=== PATIENT | female | born 1985 | race Two or more races ===

== ENCOUNTER 2018-09-29 18:15 | Inpatient (IN) | payer SELFPAY ==
[~2018-09-29 18:15] MED LIST: ISOVUE-370 76%-LOCM 1 ML ONE
[2018-09-29] MEDS ORDERED: Multivitamins, Adult 10 ML, Thiamine HCl 100 MG, Folic Acid 1 MG in Dextrose 5 %-0.45 %... IV SCH (19:00)
[2018-09-29 19:23] LABS: BHCG - Serum Negative (NEGATIVE); Pregs Control Background? CLEAR/WHITE (CLR/WHITE); Pregs Control Bar Appear? YES (CONTROL BAR)
[2018-09-29 19:29] LABS: Acetaminophen Less than 6.0 mcg/mL (10.0-30.0); Alcohol 201 mg/dL (Less than 10); Salicylate Less than 8.0 mg/dL (15.0-30.0)
[2018-09-29 19:31] LABS: ALT (SGPT) 10 U/L (8-55); AST (SGOT) 50 U/L (5-34); Albumin 2.9 g/dL (3.5-5.0); Alkaline Phosphatase 77 U/L (40-150); Anion Gap 17 mmol/L (10-20); BUN (Urea Nitrogen) 9 mg/dL (7.0-18.7); Bilirubin, Total 2.5 mg/dL (0.2-1.2); CK (CPK) 111 U/L (29-168); Calc. Creatinine Clearance 0 mL/min (70-130); Calcium 7.2 mg/dL (7.8-10.44); Carbon Dioxide 20 mmol/L (22-29); Chloride 106 mmol/L (98-107); Estimated GFR-MDRD Greater than 90; Globulin 4.9 g/dL (2.4-3.5); Glucose 143 mg/dL (70-105); Lipase 70 U/L (8-78); Potassium 3.9 mmol/L (3.5-5.1); Protein, Total 7.8 g/dL (6.0-8.3); Sodium 139 mmol/L (136-145)
[2018-09-29 19:42] LABS: CKMB 0.7 ng/mL (0-6.6); Troponin I Less than 0.010 ng/mL (< 0.028)
[2018-09-29 19:46] LABS: #Basophils 0.1 thou/uL (0.0-0.2); #Lymphocytes 1.4 thou/uL (1.20-3.40); #Monocytes 0.8 thou/uL (0.11-0.59); #Neutrophils 5.2 thou/uL (1.40-6.50); %Eosinophils 0.1 % (0.0-10.0); %Monocytes 10.3 % (0.0-10.0); %Neutrophils 69.7 % (42.0-75.0); Hemoglobin 8.4 g/dL (12.0-16.0); Mean Corpuscular HGB CONC 33.9 g/dL (32.0-36.0); Mean Corpuscular Hemoglobin 34.9 pg (27.0-31.0); Mean Platelet Volume 11.3 fL (7.4-10.4); Platelet Count 26 thou/uL (130-400); RBC Distribution Width 12.1 % (11.5-14.5); Red Blood Cell (RBC) Count 2.42 mill/uL (4.20-5.40); Reflex for Review?? YES; White Blood Cell (WBC) Count 7.5 thou/uL (4.8-10.8)
[2018-09-29 19:47] LABS: Anisocytosis SLIGHT = 6-15 cells (100X) (0-5/hpf); Hypochromia MODERATE=16-30 cells (100X) (0-5/hpf); MDiff Complete? YES; Macrocytosis SLIGHT = 6-15 cells (100X) (0-5/hpf); PLT Morphology Comment Appears Decreased; Target Cells MODERATE= 6-15 cells (100X) (0-1/hpf)
[2018-09-29 20:26] LABS: Bilirubin Negative (Negative); Blood, Urine Negative (Negative); Clarity CLEAR (Clear); Glucose, Urine (Dipstick) 500 mg/dL (Negative); Leukocyte Negative (Negative); Nitrite Negative (Negative); Protein, Urine (Dipstick) Negative (Neg-Trace); Specific Gravity, Urine 1.017 (1.002-1.036)
[2018-09-29 20:38] LABS: Amphetamine Not Detected (NotDetected); Barbiturates Screen Not Detected (NotDetected); Benzodiazepine Screen Detected (NotDetected); Cocaine Metabolite Screen Not Detected (NotDetected); Medtox Control Line Valid? VALID (VALID); Medtox Reader # READER 1; Methadone Not Detected (NotDetected); Methamphetamine Not Detected (NotDetected); Opiate Screen Not Detected (NotDetected); Oxycodone Screen Not Detected (NotDetected); Phencyclidine (PCP) Not Detected (NotDetected); THC/Cannabinoid Screen Not Detected (NotDetected); Tricyclic Screen Not Detected (NotDetected)
[2018-09-29] MEDS ORDERED: Cefepime 2 GM in Sodium Chloride 0.9% 100 ML IVPB SCH (22:15)
[2018-09-29] MEDS ORDERED: Lorazepam 2 MG/ML VIAL SLOW IVP PRN (23:03)
[2018-09-29] MEDS ORDERED: Sodium Chloride 0.9% 1,000 ML IV SCH (23:05)
[2018-09-29 23:07] LABS: Lactic Acid 1.8 mmol/L (0.5-2.2)
--- NOTE | 2018-09-30 | CT ---
CT ANGIOGRAM OF THE CHEST 09/29/18 COMPARISON: None. HISTORY: Right upper lobe pneumonia noted on radiograph performed 09/29/18. Evaluate for associated pulmonary embolism. TECHNIQUE: Serial axial CT imaging at 2.5 mm intervals from the thoracic inlet through the upper abdomen with IV contrast using a CT angiogram protocol. Coronal and oblique sagittal 3D reformatted imaging obtained . FINDINGS: No axillary, mediastinal, or hilar lymphadenopathy noted. The gallbladder appears quite distended and contains high density material suggesting stones and/or milk of calcium, only partially imaged on th is examination. Followup right upper quadrant ultrasound suggested as clinically warranted. Probable small caliber varices noted in the splenic hilum. No significant pleural, pericardial or med iastinal fluid. No evidence for pulmonary embolism. There is mild ground glass opacity/air space disease within the posterior inferior left lower lobe. T here is extensive air space disease/ground glass opacity involving the right lower lobe, particularly inferiorly/posteriorly. There is mild patchy ground glass opacity within the right middle lobe. Ther e is a dense focal area of consolidation involving the posterior inferior aspect of the right upper l obe, measuring at least 8 cm in transverse dimension. No associated cavitation. No endobronchial lesi on. Review of osseous structures demonstrates no acute findings. IMPRESSION: 1. No evidence of pulmonary embolism. 2. Findings suggesting nonspecific multifocal infectious pneumonitis, most prominent in the righ t upper lobe. Followup imaging following treatment to document resolution advised. 3. Abnormal appearance of the gallbladder as described above, only partially imaged on this exam . The gallbladder appears markedly distended and contains high density material. POS: [facility]
--- NOTE | 2018-09-30 07:47 | ULT ---
GALLBLADDER ULTRASOUND: HISTORY: A 33-year-old female with a history of gallstones. FINDINGS: Coarse increased echogenicity within the liver, evidence for some fatty change. The gallbladder is d istended with thickened gallbladder wall with some edematous changes and some pericholecystic fluid a s well as a positive Tobias's sign. Evidence for acute cholecystitis. The visualized pancreas and r ight kidney are unremarkable. Common bile duct is not dilated. IMPRESSION: Evidence for acute cholecystitis with a distended gallbladder with gallbladder wall thickening and ed ematous changes and pericholecystic fluid as well as extensive sludge as well as a positive Tobias's sign. CODE T POS: [facility]
[2018-09-30] MEDS ORDERED: Ondansetron ODT 4 MG TAB PO PRN (07:51)
[2018-09-30] MEDS ORDERED: Bisacodyl 10 MG SUPP PR PRN (07:51)
[2018-09-30] MEDS ORDERED: Ondansetron PF 4 MG/2 ML Vial IVP PRN (07:51)
[2018-09-30] MEDS ORDERED: Acetaminophen 325 MG TAB PO PRN (07:51)
[2018-09-30] MEDS ORDERED: Loperamide HCl 2 MG CAP PO PRN (07:51)
[2018-09-30] MEDS ORDERED: Senokot S 8.6-50 MG TAB PO PRN (07:51)
[2018-09-30] MEDS ORDERED: Zolpidem Tartrate 5 MG TAB PO PRN (07:51)
[2018-09-30] MEDS ORDERED: Bisacodyl 5 MG TAB PO PRN (07:51)
[2018-09-30] MEDS ORDERED: VANCOMYCIN IVPB PRN (07:53)
[2018-09-30] MEDS ORDERED: Lorazepam 2 MG/ML VIAL SLOW IVP PRN (07:54)
[2018-09-30] MEDS ORDERED: Multivit, Adult Inj 10 ML VIAL IV SCH (08:00)
[2018-09-30] MEDS: Lorazepam 2 MG/ML VIAL SLOW IVP PRN ×2 (08:15→17:17)
[2018-09-30 09:33] LABS: Hemoglobin 8.1 g/dL (12.0-16.0); Mean Corpuscular HGB CONC 33.9 g/dL (32.0-36.0); Mean Corpuscular Hemoglobin 34.5 pg (27.0-31.0); Mean Platelet Volume 12.3 fL (7.4-10.4); Platelet Count 21 thou/uL (130-400); RBC Distribution Width 12.2 % (11.5-14.5); Red Blood Cell (RBC) Count 2.34 mill/uL (4.20-5.40); White Blood Cell (WBC) Count 5.6 thou/uL (4.8-10.8)
[2018-09-30] MEDS ORDERED: Diazepam 5 MG TAB PO PRN (09:41)
[2018-09-30] MEDS ORDERED: Diazepam 5 MG TAB PO SCH (09:45)
[2018-09-30 09:51] LABS: Phosphorus 2.1 mg/dL (2.3-4.7)
[2018-09-30 09:52] LABS: ALT (SGPT) 9 U/L (8-55); AST (SGOT) 41 U/L (5-34); Albumin 2.7 g/dL (3.5-5.0); Alkaline Phosphatase 68 U/L (40-150); Anion Gap 11 mmol/L (10-20); BUN (Urea Nitrogen) 4 mg/dL (7.0-18.7); Bilirubin, Total 2.9 mg/dL (0.2-1.2); Calc. Creatinine Clearance 130 mL/min (70-130); Calcium 6.8 mg/dL (7.8-10.44); Carbon Dioxide 25 mmol/L (22-29); Chloride 102 mmol/L (98-107); Estimated GFR-MDRD Greater than 90; Globulin 4.6 g/dL (2.4-3.5); Glucose 97 mg/dL (70-105); Protein, Total 7.3 g/dL (6.0-8.3); Sodium 135 mmol/L (136-145)
[2018-09-30 09:58] LABS: Magnesium 0.7 mg/dL (1.6-2.6)
[2018-09-30] MEDS ORDERED: Vancomycin HCl 1 GM in Premix Bag 1 BAG IVPB SCH (10:00)
[2018-09-30] MEDS ORDERED: Thiamine HCl 200 MG/2 ML VIAL IM SCH (10:00)
[2018-09-30 10:02] LABS: #Basophils 0.1 thou/uL (0.0-0.2); #Monocytes 0.7 thou/uL (0.11-0.59); #Neutrophils 2.8 thou/uL (1.40-6.50); %Basophils 1.2 % (0.0-1.0); %Eosinophils 0.5 % (0.0-10.0); %Lymphocytes 36.5 % (21.0-51.0); %Monocytes 11.6 % (0.0-10.0); %Neutrophils 50.2 % (42.0-75.0); Hypochromia SLIGHT = 6-15 cells (100X) (0-5/hpf); MDiff Complete? YES; PLT Morphology Comment Appears Decreased; Polychromasia SLIGHT = 2-3 cells (100X) (0-2/hpf); Target Cells SLIGHT = 2-5 cells (100X) (0-1/hpf)
[2018-09-30] MEDS ORDERED: Magnesium Sulfate 4 GM in Sodium Chloride 0.9% 250 ML 250 ML IVPB SCH ×2 (10:15→12:45)
[2018-09-30] MEDS: Dextrose 5 % And 0.9 % NaCl 1,000 ML IV SCH ×2 (11:00→15:44)
[2018-09-30] MEDS ORDERED: Magnesium 2 GM/50 ML 2 GM in Premix Bag 1 BAG IVPB SCH (11:00)
[2018-09-30] MEDS ORDERED: Multivitamins, Adult 10 ML in Sodium Chloride 0.9% 500 ML IV SCH (12:00)
[2018-09-30] MEDS ORDERED: Saccharomyces boulardii 250 MG CAP PO SCH (12:00)
[2018-09-30] MEDS ORDERED: Potassium Phosphate 30 MMOL in Sodium Chloride 0.9% 500 ML IVPB SCH (12:00)
[2018-09-30] MEDS: Famotidine/PF 20 mg/2ml Vial SLOW IVP SCH ×2 (12:10→21:32)
[2018-09-30] MEDS: Cefepime 2 GM in Sodium Chloride 0.9% 100 ML IVPB SCH (12:16)
[2018-09-30] MEDS ORDERED: Vancomycin HCl 1.75 GM in Sodium Chloride 0.9% 500 ML IVPB SCH (14:00)
--- NOTE | 2018-09-30 14:46 | CON ---
DATE OF CONSULTATION: 09/30/2018 HISTORY: Digna Maier is a 33-year-old female with 10-day history of heavy alcohol abuse, who presented last night after she apparently got dizzy and fell down. She normally seeks care where ever she is. Last time 2 months ago, she was at [facility]. Additionally, she was coughing some blood and apparently denies any chest pain, chills, or sweats. A CTA of the chest was done, which shows a right-sided pneumonia. She says she is feeling better. She has been drinking up to a pint of vodka and 4 beers for a period of time over the last 4 to 5 days. She says she has quit drinking. She is nonsmoker. She lost 20 pounds. Appetite is poor. PAST MEDICAL HISTORY: Alcohol abuse. No history of TB, pneumonia, or history of epilepsy. PREVIOUS SURGERIES: None to speak of. SOCIAL HISTORY: Presently unemployed. She apparently also has history of previous drug abuse, she says cocaine, heroin, marijuana, and meth. She lives with the boyfriend and 3 kids. ALLERGIES: NONE. REVIEW OF SYSTEMS: Unremarkable. PHYSICAL EXAMINATION: GENERAL: She is tremulous. VITAL SIGNS: Saturations 96% on room air, respirations 16, pulse 106, temperature 99, and blood pressure 119/75. CHEST: Decreased breath sounds. No wheezing. CARDIAC: Normal S1 and S2. No gallops. LABORATORY DATA: Platelet count is 26,000, H and H 8 and 24, white count 7000. Lytes are normal. Total bilirubin is 2.5. AST is 50. She had cocaine on drug screen. Alcohol level is 201. IMPRESSION: 1. Alcoholic liver disease. 2. Thrombocytopenia. 3. Pneumonia. 4. Drug abuse. 5. Severe thrombocytopenia. She had adequate antibiotics. Pulmonary cui, she needs long-term counseling. Continue Maxipime and Levaquin. We will follow. consult note_ 70 minutes, 50% in direct patient care. Job ID: [id number] MTDD
--- NOTE | 2018-09-30 15:11 | HP ---
PRIMARY CARE PHYSICIAN: [facility] REASON FOR ADMISSION: Multifocal pneumonia, acute cholecystitis, abnormal electrolytes, and alcohol withdrawal syndrome. HISTORY OF PRESENT ILLNESS: A 33-year-old female who has no significant medical history other than chronic alcoholism, who presented last night in the emergency room with the complaint of increasing cough, shortness of breath, cough with sputum, containing trace amount of blood. She was having chest discomfort with coughing. She was also experiencing right upper quadrant pain. The patient has heavy alcohol abuse history. She drinks one pint of vodka along with 4 beers everyday basis. In emergency room, routine blood test showed severe thrombocytopenia with platelet count 26 and macrocytic anemia. She also had significantly abnormal LFT and abnormal electrolytes. In the emergency room, the patient was complaining of abdominal pain and that is why ultrasound right upper quadrant was obtained, which was suggestive of acute cholecystitis and gallbladder wall thickening with Tobias sign. The patient was admitted to medical floor. She was started on the broad spectrum antibiotic therapy. This morning, I have seen and examined her. At that time, she was not complaining of any right upper quadrant pain. She did not give me classic history of dyspepsia, but she was reporting that intermittently she was experiencing right upper quadrant pain, which she did not never need any workup or it was subsiding by itself. There is no specific relation of food-related dyspepsia. She denies any sick exposure. She denies any recent travel. She denies any flu vaccination. In emergency room, CT angio was done, which showed multifocal infiltration. She was also febrile in emergency room and relatively hypotensive and tachycardic. REVIEW OF SYSTEMS: please see my HPI for pertinent positive and negative. All other review of system reviewed and negative except as mentioned in the HPI. PAST MEDICAL HISTORY: History of polycystic ovarian syndrome, chronic alcoholism. PAST SURGICAL HISTORY: Reviewed and negative. PAST PSYCHIATRIC HISTORY: Reviewed and negative. SOCIAL HISTORY: The patient drinks one pint of vodka along with 4 beers everyday basis. She is now trying to cut down and she is drinking alcohol for several years. She also had history of abuse of cocaine, heroin, marijuana, and amphetamine. She also smokes few cigarettes on daily basis. FAMILY HISTORY: No family history of coronary artery disease, stroke, or cancer. ALLERGIES: NO KNOWN DRUG ALLERGY. CURRENT HOME MEDICATIONS: The patient is not on any prescribed or non- prescribed medication. EMERGENCY ROOM COURSE: The patient is given cefepime, Levaquin, vancomycin, IV fluids, and banana bag. PHYSICAL EXAMINATION: VITAL SIGNS: On arrival, blood pressure 105/66, pulse 111, respiratory rate 22, temperature currently 100.1, saturation 97% on 2 L oxygen. Weight 157 pounds. GENERAL: The patient is currently alert, awake, and anxious. No obvious acute distress. HEAD: Normocephalic and atraumatic. EYES: Pupils are round and reactive to light. Extraocular muscles are intact. ENT: Oropharynx within normal limit. Moist mucous membranes. No oral lesions. No pharyngeal erythema. NECK: Supple. No JVD. No thyromegaly. No meningeal signs of irritation. LUNGS: Clear to ausculation without any rhonchi or rales. CARDIAC: S1 and S2, regular, tachycardia. No murmur. No gallop. No rub. ABDOMEN: The patient does not have any right upper quadrant tenderness. No Tobias sign. No epigastric tenderness. No suprapubic discomfort. No peritoneal signs. No organomegaly. No mass. BACK: Unremarkable. No CVA tenderness. EXTREMITIES: Upper extremities; passive movement of all joints is normal. Lower extremities, no edema. Good distal pulses. SKIN: No skin rash. HEMATOLOGICAL: No lymphadenopathy. NEUROLOGIC: Nonfocal examination. SIGNIFICANT LABORATORY DATA: EKG showing sinus tachycardia, nonspecific ST-T changes. Ultrasound right upper quadrant suggestive of acute cholecystitis with distended gallbladder and gallbladder wall thickening, edematous changes, and pericholecystic fluid with extensive sludge. CBC: WBC 7.5, hemoglobin 8.4, MCV 103, platelet 26. BMP: Sodium 139, potassium 3.9, chloride 106, BUN 9, creatinine 0.72, calcium 7.2, bilirubin 2.5, AST 50, ALT 10, alkaline phosphatase 77, albumin 2.9, lipase 70. CK 111, CK-MB 0.7, and troponin I less than 0.010. BNP 13.6. TSH 0.35. test negative. Lactic acid 4.0. Repeat potassium 3.0, phosphorus 2.1, magnesium 0.7. Urine drug screen positive for benzos. Alcohol level 201. Urinalysis unremarkable. Blood culture negative so far. CT angiography showed no evidence of pulmonary embolism. Multifocal infiltration noted. ASSESSMENT AND PLAN: Impression: 1. Multifocal pneumonia. The patient's clinical presentation is consistent with pneumonia, most likely related with community-acquired pneumonia, suspecting streptococcal pneumonia underlying gram-negative ashley cannot be entirely excluded. At this point, we will check virus panel. We will continue with broad spectrum antibiotic therapy with cefepime 2 g IV twice daily, Levaquin 750 mg daily, vancomycin as per pharmacy-adjusted dose, DuoNeb q.6 hours p.r.n., Mucinex 600 mg twice daily, Florastor 250 mg p.o. daily. We will follow up on culture result. We will check Legionella as well as streptococcal antigen urine test. 2. Acute cholecystitis, suspected. General Surgery consulted. Her ultrasound reported as acute cholecystitis type of picture, but the patient clinically does not have any right upper quadrant pain. Maybe her gallbladder edema is related with hypoalbuminemia from alcoholic liver disease. At this point, the patient is already on broad spectrum antibiotic therapy and given the patient does not have any right upper quadrant discomfort and her alkaline phosphatase level is normal, possibility of acute cholecystitis is less likely, but if the patient's symptoms do not improve or recur, then we will consider HIDA scan if needed. I spoke with Dr. Luna and he agreed with continuous treatment with pneumonia. He does not think that this patient has any gallbladder issue. 3. Hypokalemia and hypophosphatemia. I will replace potassium phosphate 30 mmol of one time dose. 4. Hypomagnesemia. I will replace magnesium sulfate 4 g IV one time dose. 5. Lactic acidosis, likely due to underlying sepsis and resolved. 6. Sepsis due to pneumonia. We will follow up on culture result and the patient is on broad spectrum antibiotic therapy. 7. Macrocytic anemia. Multivitamin will be given. We will also continue folic acid, vitamin B12, and thiamine therapy upon discharge. 8. Thrombocytopenia, likely due to alcoholism. We will monitor her platelet count and because of low platelet count, the patient is not a candidate for DVT prophylaxis therapy. We will only continue SCD boots. 9. Abnormal LFT. The patient has mild jaundice and AST more than ALT, related with alcoholism. The patient also has hypoalbuminemia and we will check PT/INR tomorrow and we will also check hepatitis profile to rule out associated chronic hepatitis. 10. Polysubstance abuse, counseling given to avoid smoking, alcohol abuse, as well as other illicit drug abuse. 11. DVT prophylaxis, SCD boots. 12. GI prophylaxis, Pepcid 20 mg IV b.i.d. 13. Code status: The patient is full code. The patient does not have any surrogate decision maker. 14. Disposition plan based on clinical course. We are expecting the patient stay in hospital more than 2 midnights. Plan of care discussed with the patient in detail. Job ID: [id number]
[2018-09-30 18:25] LABS: Legionella Urinary Ag Negative (Negative); Strep pneumo Urine Ag NEGATIVE (NEGATIVE)
[2018-09-30] MEDS: Vancomycin HCl 1.5 GM in Sodium Chloride 0.9% 250 ML 300 ML IVPB SCH (21:32)
[2018-10-01] MEDS: Dextrose 5 % And 0.9 % NaCl 1,000 ML IV SCH ×3 (00:33→12:01)
[2018-10-01] MEDS: HYDROcodone/Acetaminophen 5/325 mg Tablet PO PRN ×2 (00:39→21:03)
[2018-10-01] MEDS: Cefepime 2 GM in Sodium Chloride 0.9% 100 ML IVPB SCH ×2 (00:40→13:07)
--- NOTE | 2018-10-01 02:50 | CON ---
DATE OF CONSULTATION: 09/30/2018 HISTORY OF PRESENT ILLNESS: A 33-year-old -Indian woman with significant history of chronic alcoholism. The patient was admitted yesterday with a complaint of one-week history of productive cough and hemoptysis. She was also complaining of some shortness of breath with chest pain as well as right upper quadrant abdominal pain over the previous 2 to 3 days. Remotely, she recalls some vague abdominal pain which is nonspecific and was never related to any foods or activities and that has been recurrent over the last 2 weeks. The patient reportedly consumes about a pint of vodka and a few beers daily. Workup in the emergency department included CT angiography of the chest to exclude pulmonary embolism. The CT scan, however, revealed bilateral lobar consolidative infiltrates as well as an incidental finding of gallstones. Since the admission yesterday, the patient has been treated for community-acquired pneumonia. I have been asked to evaluate the patient with regard to these gallstones. At the time of my evaluation, the patient is awake and alert. She clearly denies any abdominal pain, nausea, or vomiting. She denies any abdominal bloating, diarrhea, or hematochezia. PAST MEDICAL HISTORY: Pertinent for chronic alcoholism and polycystic ovarian syndrome. PAST SURGICAL HISTORY: The patient denies any previous surgeries. FAMILY HISTORY: Significant for coronary artery disease and cancer; she does not recall the specifics. MEDICATIONS: Current medication includes: 1. Cefepime 2 g q.12 hours. 2. Vancomycin 1.5 g q.8 hours. 3. Thiamine and multiple vitamins. ALLERGIES: THE PATIENT DENIES ANY KNOWN DRUG ALLERGIES. REVIEW OF SYSTEMS: A 10-point review of systems essentially unremarkable except for as stated in the past medical history and chief complaint. PHYSICAL EXAMINATION: GENERAL: This reveals a 33-year-old normally developed woman who is otherwise coherent, interactive, and appears stated age. The patient is alert and oriented x3. Appears to be in no acute distress at the time of my evaluation. VITAL SIGNS: Blood pressure 119/75, pulse 106, respiratory rate 16, temperature 99.3 degrees Fahrenheit, and oxygen saturation 96% on room air. HEENT: Normocephalic and atraumatic. She has no scleral icterus present. HEART: Regular rate with sinus tachycardia. No murmurs or gallops auscultated. LUNGS: Clear to auscultation bilaterally. Breathing is regular and nonlabored. ABDOMEN: Soft, nontender, and nondistended. Liver and spleen are nonpalpable below the costal margin. EXTREMITIES: 2+ radial and pedal pulses bilaterally. The patient has no ankle edema present. NEUROLOGICAL: No focal deficits present. LABORATORY DATA: Laboratory findings today includes a CBC with 5600 white blood cells. Hemoglobin and hematocrit are 8.1 and 23.8 respectively. Platelet count is markedly low at 21,000. MCV is increased at 102.0. Metabolic Profile: Sodium 135, potassium 3.0, chloride 102, bicarb 25, BUN 4, creatinine 0.68, glucose 97. Lactic acid today is 1.8, it was 4.0 yesterday. Phosphorus is 2.1, magnesium 0.7, total bilirubin 2.9, AST 41, ALT 9, alkaline phosphatase normal at 68. I have personally reviewed a CT of the chest which is remarkable for multiple lobar consolidative infiltrates. No pleural effusion is noted. There is no pneumothorax present. I have also reviewed the abdominal ultrasound which is remarkable for dilated gallbladder with a large salivary stone in the gallbladder neck. Gallbladder wall is thickened and there is small pericholecystic fluid present. Common bile duct size is normal in diameter for this patient's age at 2.8 mm. IMPRESSION: 1. Asymptomatic cholelithiasis, likely with chronic cholecystitis. 2. Multilobar bilateral pneumonia. 3. Acute microcytic anemia likely secondary to folic acid and vitamin B12 deficiency in this chronic alcoholic. 4. Fatty liver secondary to chronic alcoholism. 5. Chronic thrombocytopenia likely secondary to hypersplenism in this patient with chronic alcoholic liver disease. 6. Acute hypokalemia. 7. Acute hypomagnesemia. 8. Acute hypophosphatemia. RECOMMENDATIONS: 1. I agree with the current antibiotic regimen and treatments for this bilateral pneumonia. 2. Correct abnormal electrolytes. 3. There is no acute surgical indication for this patient at this time. 4. This patient will likely need an elective cholecystectomy once the pneumonia has been successfully treated. 5. The patient may be referred to the General Surgery Clinic once the pneumonia has been successfully treated or laparoscopic cholecystectomy could be undertaken in this hospital setting following resolution of the pneumonia if that option is chosen by the patient. The above findings and plan discussed with the patient who indicates understanding of the information given. We answered all their questions. Thank you again, Dr. Mcbride, for allowing me the opportunity to participate in the care of this patient. Job ID: [id number] MTDD
[2018-10-01 04:56] LABS: Hemoglobin 8.7 g/dL (12.0-16.0); Mean Corpuscular HGB CONC 34.6 g/dL (32.0-36.0); Mean Corpuscular Hemoglobin 35.1 pg (27.0-31.0); Mean Platelet Volume 12.5 fL (7.4-10.4); Platelet Count 18 thou/uL (130-400); RBC Distribution Width 12.2 % (11.5-14.5); Red Blood Cell (RBC) Count 2.47 mill/uL (4.20-5.40); White Blood Cell (WBC) Count 4.4 thou/uL (4.8-10.8)
[2018-10-01 04:58] LABS: #Monocytes 0.6 thou/uL (0.11-0.59); #Neutrophils 2.8 thou/uL (1.40-6.50); %Eosinophils 0.6 % (0.0-10.0); %Lymphocytes 22.7 % (21.0-51.0); %Monocytes 12.9 % (0.0-10.0); %Neutrophils 62.7 % (42.0-75.0)
[2018-10-01 05:01] LABS: INR-International Normal Ratio 1.9; Prothrombin Time 21.9 SEC (12.0-14.7)
[2018-10-01 05:02] LABS: ALT (SGPT) 10 U/L (8-55); AST (SGOT) 47 U/L (5-34); Alkaline Phosphatase 76 U/L (40-150); Anion Gap 12 mmol/L (10-20); BUN (Urea Nitrogen) 6 mg/dL (7.0-18.7); Bilirubin, Total 3.9 mg/dL (0.2-1.2); Calc. Creatinine Clearance 123 mL/min (70-130); Calcium 6.8 mg/dL (7.8-10.44); Carbon Dioxide 22 mmol/L (22-29); Chloride 102 mmol/L (98-107); Estimated GFR-MDRD Greater than 90; Glucose 123 mg/dL (70-105); Magnesium 1.5 mg/dL (1.6-2.6); Potassium 3.6 mmol/L (3.5-5.1); Sodium 132 mmol/L (136-145)
[2018-10-01 05:18] LABS: HBCM Index 0.07 S/CO (0-0.79); HBSAg Index 0.25 S/CO (0-0.99); Hep A IgM AB Non-Reactive (NonReactive); Hep A IgM S/CO 0.18 S/CO (0-0.79); Hep B Surf Ag Non-Reactive S/CO (NonReactive); Hep C IgG Ab Non-Reactive (NonReactive); Hep C Index 0.14 S/CO (0-0.79); Hepatitis B Core IgM Abs Non-Reactive (NonReactive)
[2018-10-01] MEDS: Vancomycin HCl 1.5 GM in Sodium Chloride 0.9% 250 ML 300 ML IVPB SCH ×2 (06:07→15:16)
--- NOTE | 2018-10-01 07:48 | RAD ---
CHEST PA AND LATERAL: HISTORY: A 33-year-old female with a history of pneumonia. COMPARISON: 09/29/2018. FINDINGS: Persistent but somewhat slightly less dense parenchymal opacity changes in the right upper lobe with less volume loss than on the prior study. This is consistent with lobar pneumonia. Heart size is no rmal. The left lung is clear. No pleural effusion. IMPRESSION: Evidence for right upper lobe lobar pneumonia overall less dense with less volume loss than on the pr ior study. No significant volume loss is evidenced on today's study. POS: [facility]
--- NOTE | 2018-10-01 07:51 | HP ---
ADDENDUM: Alcohol withdrawal syndrome. The patient will be watched for alcohol withdrawal syndrome, and we will continue the lorazepam on p.r.n. basis. AA protocol treatment will be initiated. Job ID: [id number]
[2018-10-01] MEDS ORDERED: Magnesium Oxide 400 MG TAB PO SCH (09:00)
[2018-10-01] MEDS ORDERED: Magnesium Sulfate 3 GM in Sodium Chloride 0.9% 100 ML IVPB SCH (10:00)
[2018-10-01] MEDS: Multivitamin W/ Minerals 1 TAB PO SCH (10:04)
[2018-10-01] MEDS: Folic Acid 1 MG TAB PO SCH (10:04)
[2018-10-01] MEDS: Saccharomyces boulardii 250 MG CAP PO SCH (10:04)
--- NOTE | 2018-10-01 10:40 | PDOC.PN ---
- Subjective Encounter Start Date: 10/01/18 Encounter Start Time: 09:00 -: old records requested/rev Patient seen and examined. No new complaints. No overnight events - Objective Resuscitation Status - Order Detail: 09/30/18 07:51 Resuscitation Status Routine Resuscitation Status: FULL: Full Resuscitation MAR Reviewed: Yes Vital Signs & Weight: Vital Signs (12 hours) Temp Pulse Resp BP BP BP Pulse Ox 10/01/18 08:00 98.8 F 110 H 20 112/80 98 10/01/18 04:00 98.5 F 104 H 20 127/85 127/85 96 10/01/18 00:00 99.0 F 109 H 20 109/77 109/77 94 L Weight Admit Weight 157 lb 8 oz Weight 157 lb 8 oz I&O: 09/30/18 10/01/18 10/02/18 06:59 06:59 06:59 Intake Total 2280 Balance 2280 Result Diagrams: 10/01/18 04:29 10/01/18 04:29 Additional Labs: Accuchecks 10/01/18 04:25 POC Glucose 126 H Radiology Reviewed by me: Yes (chest xray reviewed) Phys Exam - Physical Examination Constitutional: NAD HEENT: PERRLA, moist MMs, sclera anicteric icterus+ Neck: no JVD, supple Respiratory: no wheezing, no rales, no rhonchi Cardiovascular: RRR, no significant murmur, no rub Gastrointestinal: soft, non-tender, no distention, positive bowel sounds Musculoskeletal: no edema, pulses present Neurological: non-focal, normal sensation Lymphatic: no nodes Psychiatric: normal affect, A&O x 3 Skin: no rash, normal turgor Dx/Plan (1) Multifocal pneumonia Code(s): J18.9 - PNEUMONIA, UNSPECIFIED ORGANISM Status: Acute (2) Alcohol withdrawal syndrome Code(s): F10.239 - ALCOHOL DEPENDENCE WITH WITHDRAWAL, UNSPECIFIED Status: Acute Qualifiers: Complication of substance-induced condition: uncomplicated Qualified Code(s ): F10.230 - Alcohol dependence with withdrawal, uncomplicated (3) Hypomagnesemia Code(s): E83.42 - HYPOMAGNESEMIA Status: Acute (4) Hypophosphatemia Code(s): E83.39 - OTHER DISORDERS OF PHOSPHORUS METABOLISM Status: Acute (5) Abnormal LFTs Code(s): R94.5 - ABNORMAL RESULTS OF LIVER FUNCTION STUDIES Status: Chronic Comment: due to alcoholic liver disease (6) Alcohol abuse Code(s): F10.10 - ALCOHOL ABUSE, UNCOMPLICATED Status: Chronic (7) Alcoholic liver disease Code(s): K70.9 - ALCOHOLIC LIVER DISEASE, UNSPECIFIED Status: Chronic (8) Coagulopathy Status: Chronic Comment: due to alcoholic liver disease (9) Hypoalbuminemia Code(s): E88.09 - OTH DISORDERS OF PLASMA-PROTEIN METABOLISM, NEC Status: Chronic Comment: due to alcoholic liver disease (10) Macrocytic anemia Code(s): D53.9 - NUTRITIONAL ANEMIA, UNSPECIFIED Status: Chronic Comment: due to alcohol (11) Thrombocytopenia Code(s): D69.6 - THROMBOCYTOPENIA, UNSPECIFIED Status: Chronic Comment: due to alcohol - Plan cont current plan of care, continue antibiotics * counselled to avoid alcohol * continue current IV antibiotics * follow culture * medication reviewed as below * symptomatic treatment * expecting discharge soon. Review of Systems - Review of Systems ENT: negative: Ear Pain, Ear Discharge, Nose Pain, Nose Discharge, Nose Congestion, Mouth Pain, Mouth Swelling, Throat Pain, Throat Swelling, Other Respiratory: Cough. negative: Dry, Shortness of Breath, Hemoptysis, SOB with Excertion, Pleuritic Pain, Sputum, Wheezing Cardiovascular: negative: chest pain, palpitations, orthopnea, paroxysmal nocturnal dyspnea, edema, light headedness, other Gastrointestinal: negative: Nausea, Vomiting, Abdominal Pain, Diarrhea, Constipation, Melena, Hematochezia, Other Genitourinary: negative: Dysuria, Frequency, Incontinence, Hematuria, Retention , Other Musculoskeletal: negative: Neck Pain, Shoulder Pain, Arm Pain, Back Pain, Hand Pain, Leg Pain, Foot Pain, Other Skin: negative: Rash, Lesions, Mahamed, Bruising, Other - Medications/Allergies Allergies/Adverse Reactions: Allergies Allergy/AdvReac Type Severity Reaction Status Date / Time No Known Drug Allergies Allergy Verified 09/29/18 23:32 Medications: Current Medications Acetaminophen (Tylenol) 650 mg PO Q4H PRN PRN Reason: Headache/Fever/Mild Pain (1-3) Hydrocodone Bitart/Acetaminophen ([place] 5/325) 1 tab PO Q4H PRN PRN Reason: Moderate Pain (4-6) Last Admin: 10/01/18 00:39 Dose: 1 tab Bisacodyl (Dulcolax) 10 mg PO DAILYPRN PRN PRN Reason: Constipation Bisacodyl (Dulcolax) 10 mg [place] DAILYPRN PRN PRN Reason: Constipation Diazepam (Valium) 5 mg PO Q4H PRN PRN Reason: FOR ASE 10 OR GREATER Famotidine (Pepcid) 20 mg PO BID [facility] Folic Acid (Folvite) 1 mg PO DAILY [facility] Last Admin: 10/01/18 10:04 Dose: 1 mg Cefepime HCl 2 gm/ Sodium (Chloride) 100 mls @ 200 mls/hr IVPB 0200,1400 [facility] Last Admin: 10/01/18 00:40 Dose: 100 mls Levofloxacin 750 mg/ Device 150 mls @ 100 mls/hr IVPB 2359 [facility] Last Admin: 10/01/18 00:32 Dose: 150 mls Vancomycin HCl 1.5 gm/ Sodium (Chloride) 300 mls @ 200 mls/hr IVPB 0600,1400, 2200 [facility] Last Admin: 10/01/18 06:07 Dose: 300 mls Magnesium Sulfate 3 gm/ Sodium (Chloride) 106 mls @ 100 mls/hr IVPB 1000 [facility] Stop: 10/01/18 12:00 Last Admin: 10/01/18 10:04 Dose: 106 mls Potassium Phosphate 15 mmol/ (Sodium Chloride) 255 mls @ 62.5 mls/hr IVPB ONE [facility] Dextrose/Sodium Chloride (D5 0.9% Ns) 1,000 mls @ 75 mls/hr IV .[id number] [facility] Iron/Minerals/Multivitamins (Theragran M) 1 tab PO DAILY [facility] Last Admin: 10/01/18 10:04 Dose: 1 tab Loperamide HCl (Imodium) 2 mg PO PRN PRN PRN Reason: Diarrhea/Loose Stools Lorazepam (Ativan) 1 mg SLOW IVP Q6H PRN PRN Reason: Anxiety/Agitation Last Admin: 09/30/18 17:17 Dose: 1 mg Magnesium Oxide (Magnesium Oxide) 400 mg PO DAILY [facility] Miscellaneous Medication (Pharmacy To Dose) 1 each IVPB DAILYPRN PRN PRN Reason: LABS Morphine Sulfate (Morphine) 2 mg SLOW IVP Q4H PRN PRN Reason: Severe Pain (7-10) Ondansetron HCl (Zofran Odt) 4 mg PO Q6H PRN PRN Reason: Nausea/Vomiting Ondansetron HCl (Zofran) 4 mg IVP Q6H PRN PRN Reason: Nausea/Vomiting Saccharomyces Boulardii (Florastor) 250 mg PO DAILY [facility] Last Admin: 10/01/18 10:04 Dose: 250 mg Senna/Docusate Sodium (Senokot S) 2 tab PO BID PRN PRN Reason: Constipation Thiamine HCl (Thiamine) 100 mg PO DAILY [facility] Last Admin: 10/01/18 10:04 Dose: 100 mg Zolpidem Tartrate (Ambien) 5 mg PO HSPRN PRN PRN Reason: Insomnia
--- NOTE | 2018-10-01 10:58 | PRG ---
DATE OF SERVICE: 10/01/2018 SUBJECTIVE: This morning, she is much better, less short of breath, less cough. OBJECTIVE: VITAL SIGNS: Temperature 98, pulse 110, blood pressure 120/80. CHEST: Decreased breath sounds. No wheezing. CARDIAC: Normal S1 and S2. No gallops,no murmers LABORATORY DATA: Platelet count is still 18,000, hematocrit 25, white count 4000. Chest x-ray _r upper lobe pneumonia infiltrate. better IMPRESSION: 1. Right upper lung pneumonia. 2. Alcoholic liver disease. 3. Drug abuse. PLAN: She can probably be switched over to oral antibiotics. PT, supportive care. Job ID: [id number] MTDD
[2018-10-01] MEDS ORDERED: Potassium Phosphate 15 MMOL in Sodium Chloride 0.9% 250 ML 250 ML IVPB SCH (11:00)
[2018-10-01] MEDS: Famotidine 20 MG TAB PO SCH ×2 (11:49→21:03)
--- NOTE | 2018-10-01 11:53 | PRG ---
DATE OF SERVICE: 10/01/2018 SUBJECTIVE: The patient was resting comfortably on exam this morning. The patient denied abdominal pain, though she reported history of vomiting blood that is not acutely prior to hospitalization as well as repeating her history of some hemoptysis. The patient had no other complaints at this time. OBJECTIVE: VITAL SIGNS: Blood pressure 112/80, pulse 110, respirations 20, O2 saturation 98% on room air, temperature 98.8. GENERAL: Alert and oriented, in no acute distress. HEENT: Head; normocephalic, atraumatic. EOMI. Moist mucosal membranes. HEART: Regular rate and rhythm. No murmurs. Sinus tachycardia. LUNGS: Clear to auscultation bilaterally. Equal chest rise. ABDOMEN: Soft, nontender. EXTREMITIES: Pulses equal bilaterally. Moves all extremities. NEUROLOGIC: No neurological deficits focally. LABORATORY DATA: White blood count 4.5, hemoglobin 8.7, hematocrit 25, platelet count 18. Sodium 132, potassium 3.6, BUN 6, creatinine 0.72, glucose 123. IMPRESSION: 1. Asymptomatic cholelithiasis, likely with chronic cholecystitis. 2. Multilobar bilateral pneumonia. 3. Acute microcytic anemia secondary to folic acid and vitamin B12 deficiency in the setting of chronic alcoholism. 4. 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 5. Acute hypokalemia. 6. Acute hypomagnesemia. 7. Acute hypophosphatemia. RECOMMENDATIONS: 1. Continue antibiotic regimen as is. 2. Plan for elective cholecystectomy when the patient is more stable and better candidate for surgery. 3. Recommend gastroenterology consult for possible history of hematemesis in the setting of chronic alcoholism. 4. Correct electrolytes as needed. 5. Please refer the patient to [facility] once the patient is stable with resolved pneumonia. This patient was seen with Dr. Ng on morning rounds. The patient verbalized understanding and was in agreement with plan. Job ID: [id number]
[2018-10-01] MEDS: Lorazepam 2 MG/ML VIAL SLOW IVP PRN ×3 (13:11→23:32)
[2018-10-01 13:44] LABS: Vancomycin, Trough 19.5 ug/mL
[2018-10-01] MEDS: Vancomycin HCl 1.25 GM in Sodium Chloride 0.9% 250 ML 250 ML IVPB SCH ×2 (15:46→23:19)
[2018-10-02] MEDS: Lorazepam 2 MG/ML VIAL SLOW IVP PRN ×7 (00:16→13:35)
[2018-10-02] MEDS: Diazepam 5 MG TAB PO PRN ×3 (00:25→10:45)
[2018-10-02] MEDS: Dextrose 5 % And 0.9 % NaCl 1,000 ML IV SCH ×3 (00:59→23:22)
[2018-10-02] MEDS: Cefepime 2 GM in Sodium Chloride 0.9% 100 ML IVPB SCH ×2 (03:28→13:35)
[2018-10-02 04:49] LABS: #Basophils 0.1 thou/uL (0.0-0.2); #Eosinphils 0.1 thou/uL (0.0-0.7); #Lymphocytes 2.1 thou/uL (1.20-3.40); #Monocytes 1.1 thou/uL (0.11-0.59); #Neutrophils 6.4 thou/uL (1.40-6.50); %Basophils 0.6 % (0.0-1.0); %Eosinophils 0.7 % (0.0-10.0); %Lymphocytes 21.5 % (21.0-51.0); %Monocytes 11.5 % (0.0-10.0); %Neutrophils 65.7 % (42.0-75.0); Hemoglobin 8.7 g/dL (12.0-16.0); Mean Corpuscular HGB CONC 34.6 g/dL (32.0-36.0); Mean Corpuscular Hemoglobin 35.2 pg (27.0-31.0); Platelet Count 27 thou/uL (130-400); Red Blood Cell (RBC) Count 2.47 mill/uL (4.20-5.40); White Blood Cell (WBC) Count 9.8 thou/uL (4.8-10.8)
[2018-10-02 04:52] LABS: ALT (SGPT) 9 U/L (8-55); AST (SGOT) 45 U/L (5-34); Albumin 3.2 g/dL (3.5-5.0); Alkaline Phosphatase 76 U/L (40-150); Anion Gap 9 mmol/L (10-20); BUN (Urea Nitrogen) 5 mg/dL (7.0-18.7); Bilirubin, Total 3.7 mg/dL (0.2-1.2); Calc. Creatinine Clearance 128 mL/min (70-130); Calcium 7.7 mg/dL (7.8-10.44); Carbon Dioxide 22 mmol/L (22-29); Chloride 106 mmol/L (98-107); Estimated GFR-MDRD Greater than 90; Glucose 114 mg/dL (70-105); Magnesium 1.4 mg/dL (1.6-2.6); Phosphorus 1.5 mg/dL (2.3-4.7); Potassium 3.5 mmol/L (3.5-5.1); Protein, Total 8.2 g/dL (6.0-8.3); Sodium 133 mmol/L (136-145)
[2018-10-02] MEDS ORDERED: Potassium Chloride 20 MEQ TAB PO SCH (05:30)
[2018-10-02] MEDS ORDERED: Sodium Phosphate 30 MMOL in Sodium Chloride 0.9% 250 ML 250 ML IVPB SCH (06:00)
[2018-10-02] MEDS: Magnesium 2 GM/50 ML 2 GM in Premix Bag 1 BAG IVPB SCH ×2 (06:27→11:02)
[2018-10-02] MEDS: Multivitamin W/ Minerals 1 TAB PO SCH (08:15)
[2018-10-02] MEDS: Folic Acid 1 MG TAB PO SCH (08:16)
[2018-10-02] MEDS: Saccharomyces boulardii 250 MG CAP PO SCH (08:16)
[2018-10-02] MEDS: Magnesium Oxide 400 MG TAB PO SCH ×2 (08:16→20:59)
[2018-10-02] MEDS: Potassium Chloride 20 MEQ TAB PO SCH ×2 (08:16→17:53)
[2018-10-02] MEDS: Vancomycin HCl 1.25 GM in Sodium Chloride 0.9% 250 ML 250 ML IVPB SCH ×3 (08:16→23:22)
[2018-10-02] MEDS: Famotidine 20 MG TAB PO SCH ×2 (08:16→20:36)
--- NOTE | 2018-10-02 08:58 | PDOC.PN ---
- Subjective Encounter Start Date: 10/02/18 Encounter Start Time: 07:20 yesterday because of her DT she required IMCU transfer, this morning she still has DT, no fever - Objective Resuscitation Status - Order Detail: 09/30/18 07:51 Resuscitation Status Routine Resuscitation Status: FULL: Full Resuscitation MAR Reviewed: Yes Vital Signs & Weight: Vital Signs (12 hours) Temp Pulse Resp BP BP Pulse Ox 10/02/18 07:25 98.4 F 123 H 17 139/80 10/02/18 04:03 98.6 F 123 H 18 138/85 138/85 96 10/02/18 00:32 99.1 F 124 H 21 H 140/82 140/82 95 Weight Admit Weight 157 lb 8 oz Weight 157 lb 8 oz I&O: 10/01/18 10/02/18 10/03/18 06:59 06:59 06:59 Intake Total 1966 Output Total 600 Balance 1366 Result Diagrams: 10/02/18 03:44 10/02/18 03:44 EKG Reviewed by me: Yes (sinus tachycardia) Phys Exam - Physical Examination Constitutional: NAD HEENT: PERRLA, moist MMs Neck: no JVD, supple Respiratory: no wheezing, no rales, no rhonchi Cardiovascular: RRR, no significant murmur, no rub Gastrointestinal: soft, non-tender, no distention, positive bowel sounds Musculoskeletal: no edema, pulses present Neurological: moves all 4 limbs Lymphatic: no nodes Deviation from normal: restless Skin: no rash, normal turgor Dx/Plan (1) Multifocal pneumonia Code(s): J18.9 - PNEUMONIA, UNSPECIFIED ORGANISM Status: Acute (2) Alcohol withdrawal syndrome Code(s): F10.239 - ALCOHOL DEPENDENCE WITH WITHDRAWAL, UNSPECIFIED Status: Acute Qualifiers: Complication of substance-induced condition: uncomplicated Qualified Code(s ): F10.230 - Alcohol dependence with withdrawal, uncomplicated (3) Hypomagnesemia Code(s): E83.42 - HYPOMAGNESEMIA Status: Acute (4) Hypophosphatemia Code(s): E83.39 - OTHER DISORDERS OF PHOSPHORUS METABOLISM Status: Acute (5) Abnormal LFTs Code(s): R94.5 - ABNORMAL RESULTS OF LIVER FUNCTION STUDIES Status: Chronic Comment: due to alcoholic liver disease (6) Alcohol abuse Code(s): F10.10 - ALCOHOL ABUSE, UNCOMPLICATED Status: Chronic (7) Alcoholic liver disease Code(s): K70.9 - ALCOHOLIC LIVER DISEASE, UNSPECIFIED Status: Chronic (8) Coagulopathy Status: Chronic Comment: due to alcoholic liver disease (9) Hypoalbuminemia Code(s): E88.09 - OTH DISORDERS OF PLASMA-PROTEIN METABOLISM, NEC Status: Chronic Comment: due to alcoholic liver disease (10) Macrocytic anemia Code(s): D53.9 - NUTRITIONAL ANEMIA, UNSPECIFIED Status: Chronic Comment: due to alcohol (11) Thrombocytopenia Code(s): D69.6 - THROMBOCYTOPENIA, UNSPECIFIED Status: Chronic Comment: due to alcohol - Plan cont current plan of care, continue antibiotics * continue monitoring and treat for DT * continue current IV antibiotics for pneumonia * medication reviewed as below * symptomatic treatment. * replace magnesium, phosphorus and potassium * repeat labs tomorrow Review of Systems - Review of Systems Other: not reliable due to DT and pt is confused - Medications/Allergies Allergies/Adverse Reactions: Allergies Allergy/AdvReac Type Severity Reaction Status Date / Time No Known Drug Allergies Allergy Verified 09/29/18 23:32 Medications: Current Medications Acetaminophen (Tylenol) 650 mg PO Q4H PRN PRN Reason: Headache/Fever/Mild Pain (1-3) Hydrocodone Bitart/Acetaminophen ([place] 5/325) 1 tab PO Q4H PRN PRN Reason: Moderate Pain (4-6) Last Admin: 10/01/18 21:03 Dose: 1 tab Bisacodyl (Dulcolax) 10 mg PO DAILYPRN PRN PRN Reason: Constipation Bisacodyl (Dulcolax) 10 mg [place] DAILYPRN PRN PRN Reason: Constipation Diazepam (Valium) 5 mg PO Q4H PRN PRN Reason: FOR ASE 10 OR GREATER Last Admin: 10/02/18 06:39 Dose: 5 mg Famotidine (Pepcid) 20 mg PO BID [facility] Last Admin: 10/02/18 08:16 Dose: Not Given Folic Acid (Folvite) 1 mg PO DAILY [facility] Last Admin: 10/02/18 08:16 Dose: 1 mg Cefepime HCl 2 gm/ Sodium (Chloride) 100 mls @ 200 mls/hr IVPB 0200,1400 [facility] Last Admin: 10/02/18 03:28 Dose: 100 mls Levofloxacin 750 mg/ Device 150 mls @ 100 mls/hr IVPB 2359 [facility] Last Admin: 10/01/18 23:20 Dose: 150 mls Dextrose/Sodium Chloride (D5 0.9% Ns) 1,000 mls @ 75 mls/hr IV .[id number] [facility] Last Admin: 10/02/18 00:59 Dose: 1,000 mls Vancomycin HCl 1.25 gm/ Sodium (Chloride) 250 mls @ 166.667 mls/hr IVPB 0700, 1500,2300 [facility] Last Admin: 10/02/18 08:16 Dose: 250 mls Sodium Phosphate 30 mmol/ (Sodium Chloride) 260 mls @ 43.333 mls/hr IVPB NOW [facility] Stop: 10/02/18 11:59 Last Admin: 10/02/18 06:30 Dose: 260 mls Magnesium Sulfate 2 gm/ Device 50 mls @ 50 mls/hr IVPB NOW [facility] Stop: 10/02/18 12:00 Last Admin: 10/02/18 06:27 Dose: 50 mls Iron/Minerals/Multivitamins (Theragran M) 1 tab PO DAILY [facility] Last Admin: 10/02/18 08:15 Dose: 1 tab Loperamide HCl (Imodium) 2 mg PO PRN PRN PRN Reason: Diarrhea/Loose Stools Lorazepam (Ativan) 1 mg SLOW IVP Q2H PRN PRN Reason: Anxiety/Agitation Last Admin: 10/02/18 06:24 Dose: 1 mg Magnesium Oxide (Magnesium Oxide) 400 mg PO BID [facility] Last Admin: 10/02/18 08:16 Dose: 400 mg Miscellaneous Medication (Pharmacy To Dose) 1 each IVPB DAILYPRN PRN PRN Reason: LABS Miscellaneous Medication (Phos-Nak) 1 pkt PO TID [facility] Last Admin: 10/02/18 08:15 Dose: 1 pkt Morphine Sulfate (Morphine) 2 mg SLOW IVP Q4H PRN PRN Reason: Severe Pain (7-10) Ondansetron HCl (Zofran Odt) 4 mg PO Q6H PRN PRN Reason: Nausea/Vomiting Ondansetron HCl (Zofran) 4 mg IVP Q6H PRN PRN Reason: Nausea/Vomiting Potassium Chloride (K-Dur) 20 meq PO BID-[facility] Last Admin: 10/02/18 08:16 Dose: 20 meq Saccharomyces Boulardii (Florastor) 250 mg PO DAILY [facility] Last Admin: 10/02/18 08:16 Dose: 250 mg Senna/Docusate Sodium (Senokot S) 2 tab PO BID PRN PRN Reason: Constipation Thiamine HCl (Thiamine) 100 mg PO DAILY [facility] Last Admin: 10/02/18 08:15 Dose: 100 mg Zolpidem Tartrate (Ambien) 5 mg PO HSPRN PRN PRN Reason: Insomnia
--- NOTE | 2018-10-02 10:03 | PRG ---
DATE OF SERVICE: SUBJECTIVE: This morning, the patient is awake, alert, responsive, slightly encephalopathic. OBJECTIVE: VITAL SIGNS: Pulse is 121, temperature 98, blood pressure is 139/80, and oxygen saturation is 96% on room air. Transferred from medical floor to the MICU because of her confusion and disorientation. CHEST: Decreased breath sounds. No wheezing. CARDIAC: Normal S1 and S2. No gallop or murmurs. LABORATORY DATA: Her mag and phosphorus are low. Calcium is low. Glucose is slightly elevated. Platelet count is 27,000. ASSESSMENT: 1. Alcoholic liver disease. 2. Multiple electrolyte imbalance. 3. Pneumonia. PLAN: Correct electrolytes. Continue antibiotics. Supportive care. I would discontinue the vancomycin. I really suspect Staph pneumonia. Job ID: [id number]
[2018-10-02] MEDS ORDERED: Ziprasidone 20 MG VIAL ONE (13:37)
[2018-10-02] MEDS ORDERED: Ziprasidone 20 MG VIAL IM SCH (14:30)
[2018-10-02 14:49] LABS: Vancomycin, Trough 15.6 ug/mL
[2018-10-03] MEDS: Cefepime 2 GM in Sodium Chloride 0.9% 100 ML IVPB SCH ×2 (02:33→15:30)
[2018-10-03 04:07] LABS: #Eosinphils 0.1 thou/uL (0.0-0.7); #Lymphocytes 1.6 thou/uL (1.20-3.40); #Monocytes 0.9 thou/uL (0.11-0.59); #Neutrophils 3.9 thou/uL (1.40-6.50); %Basophils 0.7 % (0.0-1.0); %Lymphocytes 24.2 % (21.0-51.0); %Monocytes 13.9 % (0.0-10.0); %Neutrophils 59.1 % (42.0-75.0); Hemoglobin 7.9 g/dL (12.0-16.0); Mean Platelet Volume 11.7 fL (7.4-10.4); Platelet Count 29 thou/uL (130-400); RBC Distribution Width 12.2 % (11.5-14.5); Red Blood Cell (RBC) Count 2.26 mill/uL (4.20-5.40); White Blood Cell (WBC) Count 6.6 thou/uL (4.8-10.8)
[2018-10-03 04:31] LABS: Albumin 2.7 g/dL (3.5-5.0)
[2018-10-03 04:33] LABS: Calcium 7.5 mg/dL (7.8-10.44); Chloride 108 mmol/L (98-107); Magnesium 1.6 mg/dL (1.6-2.6); Potassium 3.4 mmol/L (3.5-5.1); Sodium 136 mmol/L (136-145)
[2018-10-03 04:34] LABS: Globulin 4.4 g/dL (2.4-3.5); Glucose 94 mg/dL (70-105); Protein, Total 7.1 g/dL (6.0-8.3)
[2018-10-03 04:35] LABS: Carbon Dioxide 23 mmol/L (22-29)
[2018-10-03 04:36] LABS: Anion Gap 8 mmol/L (10-20); Bilirubin, Total 3.7 mg/dL (0.2-1.2)
[2018-10-03 04:37] LABS: Alkaline Phosphatase 70 U/L (40-150); Calc. Creatinine Clearance 148 mL/min (70-130); Estimated GFR-MDRD Greater than 90
[2018-10-03 04:38] LABS: BUN (Urea Nitrogen) 4 mg/dL (7.0-18.7)
[2018-10-03 04:39] LABS: AST (SGOT) 46 U/L (5-34)
[2018-10-03 04:40] LABS: ALT (SGPT) 8 U/L (8-55)
[2018-10-03 04:42] LABS: Phosphorus 2.3 mg/dL (2.3-4.7)
[2018-10-03] MEDS: Vancomycin HCl 1.25 GM in Sodium Chloride 0.9% 250 ML 250 ML IVPB SCH (06:19)
[2018-10-03] MEDS: Saccharomyces boulardii 250 MG CAP PO SCH (08:56)
[2018-10-03] MEDS: Potassium Chloride 20 MEQ TAB PO SCH ×2 (08:56→15:30)
[2018-10-03] MEDS: Magnesium Oxide 400 MG TAB PO SCH ×2 (08:57→21:43)
[2018-10-03] MEDS: Multivitamin W/ Minerals 1 TAB PO SCH (08:57)
[2018-10-03] MEDS: Folic Acid 1 MG TAB PO SCH (08:57)
[2018-10-03] MEDS: Famotidine 20 MG TAB PO SCH ×2 (09:00→21:35)
--- NOTE | 2018-10-03 09:51 | PDOC.PN ---
- Subjective Encounter Start Date: 10/03/18 Encounter Start Time: 09:40 Patient seen and examined. No new complaints. No overnight events - Objective Resuscitation Status - Order Detail: 09/30/18 07:51 Resuscitation Status Routine Resuscitation Status: FULL: Full Resuscitation MAR Reviewed: Yes Vital Signs & Weight: Vital Signs (12 hours) Temp Pulse Resp BP BP Pulse Ox 10/03/18 07:49 98 10/03/18 07:28 99.5 F 100 16 115/80 98 10/03/18 04:00 99.5 F 119 H 20 113/75 113/75 98 10/02/18 23:44 99.0 F 89 20 132/71 100 Weight Admit Weight 157 lb 8 oz Weight 155 lb 4.8 oz I&O: 10/02/18 10/03/18 10/04/18 06:59 06:59 06:59 Intake Total 1966 3092 Output Total 600 1100 Balance 1366 1991 Result Diagrams: 10/03/18 03:49 10/03/18 03:49 Phys Exam - Physical Examination Constitutional: NAD HEENT: PERRLA, moist MMs, sclera anicteric Neck: no JVD, supple Respiratory: no wheezing, no rales, no rhonchi Cardiovascular: RRR, no significant murmur, no rub Gastrointestinal: soft, non-tender, no distention, positive bowel sounds Musculoskeletal: no edema, pulses present Neurological: non-focal, normal sensation, moves all 4 limbs Lymphatic: no nodes Psychiatric: normal affect, A&O x 3 Skin: no rash, normal turgor Dx/Plan (1) Multifocal pneumonia Code(s): J18.9 - PNEUMONIA, UNSPECIFIED ORGANISM Status: Acute (2) Alcohol withdrawal syndrome Code(s): F10.239 - ALCOHOL DEPENDENCE WITH WITHDRAWAL, UNSPECIFIED Status: Acute Qualifiers: Complication of substance-induced condition: uncomplicated Qualified Code(s ): F10.230 - Alcohol dependence with withdrawal, uncomplicated (3) Hypomagnesemia Code(s): E83.42 - HYPOMAGNESEMIA Status: Acute (4) Hypophosphatemia Code(s): E83.39 - OTHER DISORDERS OF PHOSPHORUS METABOLISM Status: Acute (5) Abnormal LFTs Code(s): R94.5 - ABNORMAL RESULTS OF LIVER FUNCTION STUDIES Status: Chronic Comment: due to alcoholic liver disease (6) Alcohol abuse Code(s): F10.10 - ALCOHOL ABUSE, UNCOMPLICATED Status: Chronic (7) Alcoholic liver disease Code(s): K70.9 - ALCOHOLIC LIVER DISEASE, UNSPECIFIED Status: Chronic (8) Coagulopathy Status: Chronic Comment: due to alcoholic liver disease (9) Hypoalbuminemia Code(s): E88.09 - OTH DISORDERS OF PLASMA-PROTEIN METABOLISM, NEC Status: Chronic Comment: due to alcoholic liver disease (10) Macrocytic anemia Code(s): D53.9 - NUTRITIONAL ANEMIA, UNSPECIFIED Status: Chronic Comment: due to alcohol (11) Thrombocytopenia Code(s): D69.6 - THROMBOCYTOPENIA, UNSPECIFIED Status: Chronic Comment: due to alcohol - Plan cont current plan of care, continue antibiotics, respiratory therapy * transfer to medical floor * dc IVF * continue current IV antibiotics * if stable today and no more DT, will consider DC tomorrow * medication reviewed as below * symptomatic treatment. * dc vancomycin Review of Systems - Review of Systems ENT: negative: Ear Pain, Ear Discharge, Nose Pain, Nose Discharge, Nose Congestion, Mouth Pain, Mouth Swelling, Throat Pain, Throat Swelling, Other Respiratory: negative: Cough, Dry, Shortness of Breath, Hemoptysis, SOB with Excertion, Pleuritic Pain, Sputum, Wheezing Cardiovascular: negative: chest pain, palpitations, orthopnea, paroxysmal nocturnal dyspnea, edema, light headedness, other Gastrointestinal: negative: Nausea, Vomiting, Abdominal Pain, Diarrhea, Constipation, Melena, Hematochezia, Other Genitourinary: negative: Dysuria, Frequency, Incontinence, Hematuria, Retention , Other Musculoskeletal: negative: Neck Pain, Shoulder Pain, Arm Pain, Back Pain, Hand Pain, Leg Pain, Foot Pain, Other Skin: negative: Rash, Lesions, Mahamed, Bruising, Other - Medications/Allergies Allergies/Adverse Reactions: Allergies Allergy/AdvReac Type Severity Reaction Status Date / Time No Known Drug Allergies Allergy Verified 09/29/18 23:32 Medications: Current Medications Acetaminophen (Tylenol) 650 mg PO Q4H PRN PRN Reason: Headache/Fever/Mild Pain (1-3) Hydrocodone Bitart/Acetaminophen ([place] 5/325) 1 tab PO Q4H PRN PRN Reason: Moderate Pain (4-6) Last Admin: 10/01/18 21:03 Dose: 1 tab Bisacodyl (Dulcolax) 10 mg PO DAILYPRN PRN PRN Reason: Constipation Bisacodyl (Dulcolax) 10 mg [place] DAILYPRN PRN PRN Reason: Constipation Diazepam (Valium) 5 mg PO Q4H PRN PRN Reason: FOR ASE 10 OR GREATER Last Admin: 10/02/18 10:45 Dose: 5 mg Famotidine (Pepcid) 20 mg PO BID [facility] Last Admin: 10/03/18 09:00 Dose: Not Given Folic Acid (Folvite) 1 mg PO DAILY [facility] Last Admin: 10/03/18 08:57 Dose: 1 mg Cefepime HCl 2 gm/ Sodium (Chloride) 100 mls @ 200 mls/hr IVPB 0200,1400 [facility] Last Admin: 10/03/18 02:33 Dose: 100 mls Levofloxacin 750 mg/ Device 150 mls @ 100 mls/hr IVPB 2359 [facility] Last Admin: 10/02/18 23:22 Dose: 150 mls Dextrose/Sodium Chloride (D5 0.9% Ns) 1,000 mls @ 75 mls/hr IV .[id number] [facility] Last Admin: 10/02/18 23:22 Dose: 1,000 mls Vancomycin HCl 1.25 gm/ Sodium (Chloride) 250 mls @ 166.667 mls/hr IVPB 0700, 1500,2300 [facility] Last Admin: 10/03/18 06:19 Dose: 250 mls Iron/Minerals/Multivitamins (Theragran M) 1 tab PO DAILY [facility] Last Admin: 10/03/18 08:57 Dose: 1 tab Loperamide HCl (Imodium) 2 mg PO PRN PRN PRN Reason: Diarrhea/Loose Stools Lorazepam (Ativan) 2 mg SLOW IVP Q2H PRN PRN Reason: Anxiety/Agitation Last Admin: 10/02/18 13:35 Dose: 2 mg Magnesium Oxide (Magnesium Oxide) 400 mg PO BID [facility] Last Admin: 10/03/18 08:57 Dose: 400 mg Miscellaneous Medication (Pharmacy To Dose) 1 each IVPB DAILYPRN PRN PRN Reason: LABS Miscellaneous Medication (Phos-Nak) 1 pkt PO TID [facility] Last Admin: 10/03/18 08:57 Dose: 1 pkt Morphine Sulfate (Morphine) 2 mg SLOW IVP Q4H PRN PRN Reason: Severe Pain (7-10) Ondansetron HCl (Zofran Odt) 4 mg PO Q6H PRN PRN Reason: Nausea/Vomiting Ondansetron HCl (Zofran) 4 mg IVP Q6H PRN PRN Reason: Nausea/Vomiting Potassium Chloride (K-Dur) 20 meq PO BID-[facility] Last Admin: 10/03/18 08:56 Dose: 20 meq Saccharomyces Boulardii (Florastor) 250 mg PO DAILY [facility] Last Admin: 10/03/18 08:56 Dose: 250 mg Senna/Docusate Sodium (Senokot S) 2 tab PO BID PRN PRN Reason: Constipation Thiamine HCl (Thiamine) 100 mg PO DAILY [facility] Last Admin: 10/03/18 08:56 Dose: 100 mg Zolpidem Tartrate (Ambien) 5 mg PO HSPRN PRN PRN Reason: Insomnia
--- NOTE | 2018-10-03 11:53 | PRG ---
DATE OF SERVICE: 10/03/2018 SUBJECTIVE: The patient is sleeping in bed. When I woke her up, she said she was doing well, she had no complaints. Apparently, she was having withdrawal symptoms yesterday, but those have resolved. OBJECTIVE: VITAL SIGNS: Temperature 99.5, pulse 100, blood pressure 115/80, and O2 saturation 98% on room air. HEENT: Unremarkable. NECK: No adenopathy or JVD. CHEST: Clear without wheezing or rhonchi. CARDIAC: S1 and S2. Regular. ABDOMEN: Soft. EXTREMITIES: No edema. DIAGNOSTIC STUDIES: I reviewed her chest x-ray from 10/01/2018, shows a right upper lobe infiltrate. LABORATORY DATA: Sodium 136, potassium 3.4, chloride 108, CO2 of 23, BUN 4, creatinine 0.6, and glucose 94. White blood cell count 6.6, hematocrit 23.3, and platelet count 29. ASSESSMENT: 1. Alcoholic liver disease. 2. Right upper lobe pneumonia. 3. Electrolyte imbalance. 4. Substance abuse withdrawal. PLAN: The patient is being transferred up to the medical floor. She is to continue with cefepime and Levaquin. IV fluids have been stopped. Hopefully, she can go home in a couple of days. Job ID: [id number]
[2018-10-04] MEDS: Cefepime 2 GM in Sodium Chloride 0.9% 100 ML IVPB SCH ×2 (01:02→15:47)
[2018-10-04] MEDS: Saccharomyces boulardii 250 MG CAP PO SCH (08:13)
[2018-10-04] MEDS: Multivitamin W/ Minerals 1 TAB PO SCH (08:14)
[2018-10-04] MEDS: Magnesium Oxide 400 MG TAB PO SCH ×2 (08:14→21:47)
[2018-10-04] MEDS: Potassium Chloride 20 MEQ TAB PO SCH ×2 (08:14→15:47)
[2018-10-04] MEDS: Folic Acid 1 MG TAB PO SCH (08:14)
[2018-10-04] MEDS: Famotidine 20 MG TAB PO SCH ×2 (08:53→21:44)
--- NOTE | 2018-10-04 09:33 | PDOC.PN ---
- Subjective Encounter Start Date: 10/04/18 Encounter Start Time: 08:10 Patient seen and examined. No new complaints. No overnight events - Objective Resuscitation Status - Order Detail: 09/30/18 07:51 Resuscitation Status Routine Resuscitation Status: FULL: Full Resuscitation MAR Reviewed: Yes Vital Signs & Weight: Vital Signs (12 hours) Temp Pulse Resp BP BP BP Pulse Ox 10/04/18 07:18 98.1 F 107 H 16 109/74 96 10/04/18 04:00 98.7 F 108 H 16 100/66 94 L 10/04/18 03:46 100/66 10/04/18 00:00 98.8 F 100 16 101/64 96 10/03/18 23:39 101/64 Weight Admit Weight 157 lb 8 oz Weight 155 lb 4.8 oz I&O: 10/03/18 10/04/18 10/05/18 06:59 06:59 06:59 Intake Total 3092 2179 Output Total 1100 900 Balance 1991 1279 Result Diagrams: 10/03/18 03:49 10/03/18 03:49 Phys Exam - Physical Examination Constitutional: NAD HEENT: PERRLA, moist MMs, sclera anicteric Neck: no JVD, supple Respiratory: no wheezing, no rales, no rhonchi Cardiovascular: RRR, no significant murmur, no rub Gastrointestinal: soft, non-tender, no distention, positive bowel sounds Musculoskeletal: no edema, pulses present Neurological: non-focal, normal sensation, moves all 4 limbs Lymphatic: no nodes Psychiatric: normal affect, A&O x 3 Skin: no rash, normal turgor Dx/Plan (1) Multifocal pneumonia Code(s): J18.9 - PNEUMONIA, UNSPECIFIED ORGANISM Status: Acute (2) Alcohol withdrawal syndrome Code(s): F10.239 - ALCOHOL DEPENDENCE WITH WITHDRAWAL, UNSPECIFIED Status: Acute Qualifiers: Complication of substance-induced condition: uncomplicated Qualified Code(s ): F10.230 - Alcohol dependence with withdrawal, uncomplicated (3) Hypomagnesemia Code(s): E83.42 - HYPOMAGNESEMIA Status: Acute (4) Hypophosphatemia Code(s): E83.39 - OTHER DISORDERS OF PHOSPHORUS METABOLISM Status: Acute (5) Abnormal LFTs Code(s): R94.5 - ABNORMAL RESULTS OF LIVER FUNCTION STUDIES Status: Chronic Comment: due to alcoholic liver disease (6) Alcohol abuse Code(s): F10.10 - ALCOHOL ABUSE, UNCOMPLICATED Status: Chronic (7) Alcoholic liver disease Code(s): K70.9 - ALCOHOLIC LIVER DISEASE, UNSPECIFIED Status: Chronic (8) Coagulopathy Status: Chronic Comment: due to alcoholic liver disease (9) Hypoalbuminemia Code(s): E88.09 - OTH DISORDERS OF PLASMA-PROTEIN METABOLISM, NEC Status: Chronic Comment: due to alcoholic liver disease (10) Macrocytic anemia Code(s): D53.9 - NUTRITIONAL ANEMIA, UNSPECIFIED Status: Chronic Comment: due to alcohol (11) Thrombocytopenia Code(s): D69.6 - THROMBOCYTOPENIA, UNSPECIFIED Status: Chronic Comment: due to alcohol - Plan cont current plan of care, continue antibiotics, PT/OT * medication reviewed as below * symptomatic treatment * today will consult PT to determine gait stability * expecting discharge tomorrow. Review of Systems - Review of Systems ENT: negative: Ear Pain, Ear Discharge, Nose Pain, Nose Discharge, Nose Congestion, Mouth Pain, Mouth Swelling, Throat Pain, Throat Swelling, Other Respiratory: negative: Cough, Dry, Shortness of Breath, Hemoptysis, SOB with Excertion, Pleuritic Pain, Sputum, Wheezing Cardiovascular: negative: chest pain, palpitations, orthopnea, paroxysmal nocturnal dyspnea, edema, light headedness, other Gastrointestinal: negative: Nausea, Vomiting, Abdominal Pain, Diarrhea, Constipation, Melena, Hematochezia, Other Genitourinary: negative: Dysuria, Frequency, Incontinence, Hematuria, Retention , Other Musculoskeletal: negative: Neck Pain, Shoulder Pain, Arm Pain, Back Pain, Hand Pain, Leg Pain, Foot Pain, Other Skin: negative: Rash, Lesions, Mahamed, Bruising, Other - Medications/Allergies Allergies/Adverse Reactions: Allergies Allergy/AdvReac Type Severity Reaction Status Date / Time No Known Drug Allergies Allergy Verified 09/29/18 23:32 Medications: Current Medications Acetaminophen (Tylenol) 650 mg PO Q4H PRN PRN Reason: Headache/Fever/Mild Pain (1-3) Hydrocodone Bitart/Acetaminophen ([place] 5/325) 1 tab PO Q4H PRN PRN Reason: Moderate Pain (4-6) Last Admin: 10/01/18 21:03 Dose: 1 tab Bisacodyl (Dulcolax) 10 mg PO DAILYPRN PRN PRN Reason: Constipation Bisacodyl (Dulcolax) 10 mg [place] DAILYPRN PRN PRN Reason: Constipation Diazepam (Valium) 5 mg PO Q4H PRN PRN Reason: FOR ASE 10 OR GREATER Last Admin: 10/02/18 10:45 Dose: 5 mg Famotidine (Pepcid) 20 mg PO BID [facility] Last Admin: 10/04/18 08:53 Dose: Not Given Folic Acid (Folvite) 1 mg PO DAILY [facility] Last Admin: 10/04/18 08:14 Dose: 1 mg Cefepime HCl 2 gm/ Sodium (Chloride) 100 mls @ 200 mls/hr IVPB 0200,1400 [facility] Last Admin: 10/04/18 01:02 Dose: 100 mls Levofloxacin 750 mg/ Device 150 mls @ 100 mls/hr IVPB 2359 [facility] Last Admin: 10/04/18 01:01 Dose: 150 mls Iron/Minerals/Multivitamins (Theragran M) 1 tab PO DAILY [facility] Last Admin: 10/04/18 08:14 Dose: 1 tab Loperamide HCl (Imodium) 2 mg PO PRN PRN PRN Reason: Diarrhea/Loose Stools Lorazepam (Ativan) 2 mg SLOW IVP Q2H PRN PRN Reason: Anxiety/Agitation Last Admin: 10/02/18 13:35 Dose: 2 mg Magnesium Oxide (Magnesium Oxide) 400 mg PO BID [facility] Last Admin: 10/04/18 08:14 Dose: 400 mg Miscellaneous Medication (Phos-Nak) 1 pkt PO TID [facility] Last Admin: 10/04/18 08:15 Dose: 1 pkt Morphine Sulfate (Morphine) 2 mg SLOW IVP Q4H PRN PRN Reason: Severe Pain (7-10) Ondansetron HCl (Zofran Odt) 4 mg PO Q6H PRN PRN Reason: Nausea/Vomiting Ondansetron HCl (Zofran) 4 mg IVP Q6H PRN PRN Reason: Nausea/Vomiting [facility] Last Admin: 10/04/18 08:14 Dose: 20 meq Saccharomyces Boulardii (Florastor) 250 mg PO DAILY [facility] Last Admin: 10/04/18 08:13 Dose: 250 mg Senna/Docusate Sodium (Senokot S) 2 tab PO BID PRN PRN Reason: Constipation Thiamine HCl (Thiamine) 100 mg PO DAILY [facility] Last Admin: 10/04/18 08:14 Dose: 100 mg Zolpidem Tartrate (Ambien) 5 mg PO HSPRN PRN PRN Reason: Insomnia
[2018-10-05] MEDS: Cefepime 2 GM in Sodium Chloride 0.9% 100 ML IVPB SCH (01:47)
[2018-10-05] MEDS: Saccharomyces boulardii 250 MG CAP PO SCH (08:40)
[2018-10-05] MEDS: Magnesium Oxide 400 MG TAB PO SCH (08:40)
[2018-10-05] MEDS: Folic Acid 1 MG TAB PO SCH (08:41)
[2018-10-05] MEDS: Famotidine 20 MG TAB PO SCH (08:41)
[2018-10-05] MEDS: Potassium Chloride 20 MEQ TAB PO SCH (08:41)
[2018-10-05] MEDS: Multivitamin W/ Minerals 1 TAB PO SCH (08:41)
--- NOTE | 2018-10-05 10:22 | PRG ---
DATE OF SERVICE: 10/05/2018 SUBJECTIVE: Digna Maier is a 33-year-old female, status post right upper lung pneumonia, status post encephalopathy, alcohol abuse, and substance abuse. OBJECTIVE: GENERAL: This morning, she is sitting on the side of the bed, in no distress. VITAL SIGNS: Temperature is 99, blood pressure is 105/70, sats are 92, and pulse 95. CHEST: Decreased breath sounds. No wheezing. CARDIAC: Normal S1 and S2. No gallops or murmurs. ASSESSMENT: 1. Right upper lung pneumonia, culture negative, community-acquired, possibly aspiration. 2. Alcohol abuse. 3. Substance abuse. PLAN: Switch over to oral antibiotic. She can be discharged home any time. Follow up with the primary care physician. Job ID: [id number]
--- NOTE | 2018-10-05 11:23 | PDOC.PN ---
- Subjective Encounter Start Date: 10/05/18 Encounter Start Time: 09:00 Patient seen and examined. No new complaints. No overnight events - Objective Resuscitation Status - Order Detail: 09/30/18 07:51 Resuscitation Status Routine Resuscitation Status: FULL: Full Resuscitation MAR Reviewed: Yes Vital Signs & Weight: Vital Signs (12 hours) Temp Pulse Resp BP BP BP Pulse Ox 10/05/18 08:00 105/70 10/05/18 07:36 99.1 F 95 20 105/70 92 L 10/05/18 04:00 98.6 F 103 H 18 101/70 93 L 10/05/18 03:47 101/70 10/05/18 00:00 98.3 F 103 H 18 98/63 94 L 10/04/18 23:35 98/63 Weight Admit Weight 157 lb 8 oz Weight 155 lb 4.8 oz I&O: 10/04/18 10/05/18 10/06/18 06:59 06:59 06:59 Intake Total 2179 3250 Output Total 900 Balance 1279 3250 Result Diagrams: 10/03/18 03:49 10/03/18 03:49 Phys Exam - Physical Examination Constitutional: NAD HEENT: PERRLA, moist MMs, sclera anicteric Neck: no JVD, supple Respiratory: no wheezing, no rales, no rhonchi Cardiovascular: RRR, no significant murmur, no rub Gastrointestinal: soft, non-tender, no distention, positive bowel sounds Musculoskeletal: no edema, pulses present Neurological: non-focal, normal sensation, moves all 4 limbs Psychiatric: normal affect, A&O x 3 Skin: no rash, normal turgor Dx/Plan (1) Multifocal pneumonia Code(s): J18.9 - PNEUMONIA, UNSPECIFIED ORGANISM Status: Acute (2) Alcohol withdrawal syndrome Code(s): F10.239 - ALCOHOL DEPENDENCE WITH WITHDRAWAL, UNSPECIFIED Status: Acute Qualifiers: Complication of substance-induced condition: uncomplicated Qualified Code(s ): F10.230 - Alcohol dependence with withdrawal, uncomplicated (3) Hypomagnesemia Code(s): E83.42 - HYPOMAGNESEMIA Status: Acute (4) Hypophosphatemia Code(s): E83.39 - OTHER DISORDERS OF PHOSPHORUS METABOLISM Status: Acute (5) Abnormal LFTs Code(s): R94.5 - ABNORMAL RESULTS OF LIVER FUNCTION STUDIES Status: Chronic Comment: due to alcoholic liver disease (6) Alcohol abuse Code(s): F10.10 - ALCOHOL ABUSE, UNCOMPLICATED Status: Chronic (7) Alcoholic liver disease Code(s): K70.9 - ALCOHOLIC LIVER DISEASE, UNSPECIFIED Status: Chronic (8) Coagulopathy Status: Chronic Comment: due to alcoholic liver disease (9) Hypoalbuminemia Code(s): E88.09 - OTH DISORDERS OF PLASMA-PROTEIN METABOLISM, NEC Status: Chronic Comment: due to alcoholic liver disease (10) Macrocytic anemia Code(s): D53.9 - NUTRITIONAL ANEMIA, UNSPECIFIED Status: Chronic Comment: due to alcohol (11) Thrombocytopenia Code(s): D69.6 - THROMBOCYTOPENIA, UNSPECIFIED Status: Chronic Comment: due to alcohol - Plan cont current plan of care, continue antibiotics * medication reviewed as below * symptomatic treatment * see discharge summery. Review of Systems - Review of Systems ENT: negative: Ear Pain, Ear Discharge, Nose Pain, Nose Discharge, Nose Congestion, Mouth Pain, Mouth Swelling, Throat Pain, Throat Swelling, Other Respiratory: negative: Cough, Dry, Shortness of Breath, Hemoptysis, SOB with Excertion, Pleuritic Pain, Sputum, Wheezing Cardiovascular: negative: chest pain, palpitations, orthopnea, paroxysmal nocturnal dyspnea, edema, light headedness, other Gastrointestinal: negative: Nausea, Vomiting, Abdominal Pain, Diarrhea, Constipation, Melena, Hematochezia, Other Genitourinary: negative: Dysuria, Frequency, Incontinence, Hematuria, Retention , Other Musculoskeletal: negative: Neck Pain, Shoulder Pain, Arm Pain, Back Pain, Hand Pain, Leg Pain, Foot Pain, Other Skin: negative: Rash, Lesions, Mahamed, Bruising, Other - Medications/Allergies Allergies/Adverse Reactions: Allergies Allergy/AdvReac Type Severity Reaction Status Date / Time No Known Drug Allergies Allergy Verified 09/29/18 23:32 Medications: Current Medications Acetaminophen (Tylenol) 650 mg PO Q4H PRN PRN Reason: Headache/Fever/Mild Pain (1-3) Hydrocodone Bitart/Acetaminophen ([place] 5/325) 1 tab PO Q4H PRN PRN Reason: Moderate Pain (4-6) Last Admin: 10/01/18 21:03 Dose: 1 tab Bisacodyl (Dulcolax) 10 mg PO DAILYPRN PRN PRN Reason: Constipation Bisacodyl (Dulcolax) [address] DAILYPRN PRN PRN Reason: Constipation Diazepam (Valium) 5 mg PO Q4H PRN PRN Reason: FOR ASE 10 OR GREATER Last Admin: 10/02/18 10:45 Dose: 5 mg Famotidine (Pepcid) 20 mg PO BID [facility] Last Admin: 10/05/18 08:41 Dose: Not Given Folic Acid (Folvite) 1 mg PO DAILY [facility] Last Admin: 10/05/18 08:41 Dose: 1 mg Iron/Minerals/Multivitamins (Theragran M) 1 tab PO DAILY [facility] Last Admin: 10/05/18 08:41 Dose: 1 tab Levofloxacin (Levaquin) 500 mg PO 0600 [facility] Stop: 10/10/18 06:01 Loperamide HCl (Imodium) 2 mg PO PRN PRN PRN Reason: Diarrhea/Loose Stools Lorazepam (Ativan) 2 mg SLOW IVP Q2H PRN PRN Reason: Anxiety/Agitation Last Admin: 10/02/18 13:35 Dose: 2 mg Magnesium Oxide (Magnesium Oxide) 400 mg PO BID [facility] Last Admin: 10/05/18 08:40 Dose: 400 mg Miscellaneous Medication (Phos-Nak) 1 pkt PO TID [facility] Last Admin: 10/05/18 08:39 Dose: 1 pkt Morphine Sulfate (Morphine) 2 mg SLOW IVP Q4H PRN PRN Reason: Severe Pain (7-10) Ondansetron HCl (Zofran Odt) 4 mg PO Q6H PRN PRN Reason: Nausea/Vomiting Ondansetron HCl (Zofran) 4 mg IVP Q6H PRN PRN Reason: Nausea/Vomiting Potassium Chloride (K-Dur) 20 meq PO [facility] Last Admin: 10/05/18 08:41 Dose: 20 meq Saccharomyces Boulardii (Florastor) 250 mg PO DAILY [facility] Last Admin: 10/05/18 08:40 Dose: 250 mg Senna/Docusate Sodium (Senokot S) 2 tab PO BID PRN PRN Reason: Constipation Thiamine HCl (Thiamine) 100 mg PO DAILY [facility] Last Admin: 10/05/18 08:41 Dose: 100 mg Zolpidem Tartrate (Ambien) 5 mg PO HSPRN PRN PRN Reason: Insomnia
[2018-10-05 11:24] VITALS: BP 96/66; TEMP 98.8
--- NOTE | 2018-10-05 12:22 | DIS ---
DATE OF ADMISSION: 09/29/2018 DATE OF DISCHARGE: 10/05/2018 PRIMARY CARE PHYSICIAN: [facility] call admission. DISCHARGE DISPOSITION: Home. PRIMARY DISCHARGE DIAGNOSES: 1. Multifocal community-acquired pneumonia. 2. Alcohol withdrawal syndrome. 3. Hypomagnesemia. 4. Hypophosphatemia. 5. Hypokalemia. SECONDARY DISCHARGE DIAGNOSES: 1. Alcohol abuse. 2. Thrombocytopenia. 3. Macrocytic anemia. 4. Chronic hypoalbuminemia. 5. Coagulopathy due to liver disease. 6. Chronic alcoholic liver disease, abnormal LFT due to alcohol abuse. PRIMARY PROCEDURE/OPERATION: None. RADIOLOGICAL INVESTIGATION: CT angiography showed multifocal pneumonia. Abdominal ultrasound showed gallbladder edema. Chest x-ray, repeat one showed improvement in pneumonia. SIGNIFICANT LABORATORY DATA: WBC 6.6, hemoglobin 7.9, and platelet 29. INR 1.9. Sodium 136 and creatinine 0.60. Urinalysis normal. Urine drug screen negative. Alcohol level on admission 201. Hepatitis profile, negative. Urine Legionella and streptococcal pneumoniae antigen negative. Blood culture negative. Respiratory virus panel negative. DISCHARGE MEDICATIONS: Vitamin B12 1000 mcg p.o. daily, folic acid 1 mg p.o. daily, multivitamin one tablet p.o. daily, thiamine 100 mg p.o. daily, Florastor 250 mg p.o. daily for five days, Levaquin 750 mg p.o. daily for five days. CONTRAINDICATION: None. CODE STATUS: Full code. INPATIENT CONSULTANTS: Dr. Marin. Dr. Mejia was following while in the hospital. Dr. Luna was consulted for abnormal gallbladder ultrasound. TEST RESULTS PENDING ON DISCHARGE: None. ALLERGIES: NO KNOWN DRUG ALLERGIES. DISCHARGE PLAN: Post hospital, the patient will follow up with primary care physician in one week and the patient is instructed to get another chest x-ray upon followup visit with primary care physician. HOSPITAL COURSE: A 33-year-old female, who has alcohol abuse history, who was admitted by me. Please see my HPI for further detail. On admission, she was having cough. She had CT angio, which showed multifocal pneumonia. She was also found with abnormal LFTs as well. Abdominal ultrasound was done, which showed some gallbladder wall edema and that is why Dr. Luna was consulted, but he was not thinking that the patient has any acute cholecystitis given the patient was not having any right upper quadrant pain. Her gallbladder wall edema was attributed to be due to chronic liver disease. Regarding pneumonia, Dr. Wong was following while in hospital, the patient was treated with broad-spectrum antibiotic therapy. While in hospital, the patient developed acute alcohol withdrawal syndrome and that is why the patient required IMCU transfer and treated aggressively with benzodiazepine. Upon stabilization, the patient was transferred back to medical floor and the patient is now able to walk by herself without any problem. The patient is medically stable for discharge. Please see my progress note from today for further detail. Job ID: [id number]
[2018-10-05 14:22] VITALS: BMI 24.3
== END 2018-10-05 12:24 | disposition home or self-care (01) | DRG 871 ==
LOC: ERS 18:15 → T4-A 21:54 → IMCU/EMU 10-02 00:33 → T4-A 10-03 13:13
PROVIDERS: ADMIT Internal Medicine; ATTEND Internal Medicine
DX: A41.9 Sepsis, unspecified organism (principal); J18.9 Pneumonia, unspecified organism; E87.2 Acidosis; F10.239 Alcohol dependence with withdrawal, unspecified; D68.4 Acquired coagulation factor deficiency; E87.6 Hypokalemia; E83.42 Hypomagnesemia; D53.9 Nutritional anemia, unspecified; D69.59 Other secondary thrombocytopenia; F19.10 Other psychoactive substance abuse, uncomplicated; Y90.7 Blood alcohol level of 200-239 mg/100 ml; K70.9 Alcoholic liver disease, unspecified; K81.1 Chronic cholecystitis; D50.9 Iron deficiency anemia, unspecified; E83.39 Other disorders of phosphorus metabolism; K70.0 Alcoholic fatty liver
CPT/HCPCS: 36415; 36416; 71046; 71275; 76705; 80053; 80074; 80202; 80306; 80307; 81003; 82553; 83605; 83690; 83735; 83880; 84100; 84443; 84484; 84703; 85025; 85060; 85610; 87633; 87899; 93005; 94640; 96365; 96366; 96375; G8978-GP-CJ; G8979-GP-CJ; G8980-GP-CJ; J0692; J1956; J2060; J3370; J3411; J3475; J3486; J7042; J7050; J7620; S0028